=== PATIENT | male | born 1995 | race Caucasian/White ===

== ENCOUNTER 2024-12-04 23:44 | Emergency (ER) | payer SELFPAY ==
[~2024-12-04] VITALS: Ht 167.6 cm; Wt 74.0 kg
[2024-12-04 23:49] VITALS: TEMP 36.3; O2SAT 100
[2024-12-05] MEDS: PANTOPRAZOLE SODIUM 40 MG/VIAL IV STA (00:45)
[2024-12-05] MEDS: METOCLOPRAMIDE HCL 10MG/2ML VIAL IV STA (00:45)
[2024-12-05 01:07] LABS: BASOPHILS % 0.3 % (0.0-2.0); EOSINOPHILS % 0.4 % (0.0-5.0); HEMATOCRIT. 47.5 % (42.0-52.0); HEMOGLOBIN. 16.1 g/dL (14.0-18.0); LYMPHOCYTES % 13.6 % (20.0-50.0); MEAN CORPUSCULAR HEMOGLOBIN 29.6 pg (28.0-32.0); MEAN CORPUSCULAR HGB CONC 33.8 g/dL (31.0-37.0); MEAN CORPUSCULAR VOLUME 87.5 fL (80.0-94.0); MEAN PLATELET VOLUME 7.6 fl (7.4-10.4); MONOCYTES % 2.3 % (2.0-8.0); NEUTROPHILS % 83.4 % (40.0-76.0); PLATELET 288 x1000/uL (130-400); RED BLOOD CELL COUNT 5.42 mill/uL (4.7-6.1); RED CELL DISTRIBUTION WIDTH 13.9 % (11.6-14.6); WHITE BLOOD COUNT 12.2 x1000/uL (4.5-11.0)
[2024-12-05] MEDS ORDERED: ONDA4TAB50 MT (01:07)
[2024-12-05] MEDS ORDERED: PANT40SU MT (01:07)
[2024-12-05 01:22] LABS: CHLORIDE 104 mEq/L (98-107); POTASSIUM 4.2 mEq/L (3.5-5.1); SODIUM 142 mEq/L (136-145)
[2024-12-05 01:23] LABS: CALCIUM 9.5 mg/dL (8.7-10.4); CARBON DIOXIDE 27 mEq/L (21-32)
[2024-12-05 01:28] LABS: CREATININE 0.9 mg/dL (0.6-1.3); ETHANOL BLOOD 276 mg/dL (<10); GLUCOSE 117 mg/dL (70-105); UREA NITROGEN BLOOD 12 mg/dL (9-23)
[2024-12-05 02:18] VITALS: BP 90/52; PULSE 81; RESP 16; O2SAT 97
== END 2024-12-05 03:20 | disposition home or self-care (01) ==
LOC: ER 23:44
DX: F10.10 Alcohol abuse, uncomplicated (principal); R51.9 Headache, unspecified; J45.909 Unspecified asthma, uncomplicated; Y90.8 Blood alcohol level of 240 mg/100 ml or more
CPT/HCPCS: 99285; 80048; 80320; 83690; 85025; 36415; 70450; 96365; 96375; J2765; J2470; Z7610 ×2; G0480